=== PATIENT | female | born 1975 | race Caucasian/White ===

== ENCOUNTER 2020-03-05 17:57 | Emergency (ER) | payer SELFPAY ==
[~2020-03-05] VITALS: Ht 152.4 cm; Wt 73.5 kg
[2020-03-05 18:17] VITALS: BP_SYST 132
[2020-03-05 21:58] VITALS: BP_SYST 126
== END 2020-03-05 21:58 | disposition home or self-care (01) ==
LOC: SED 17:57
DX: U07.1 COVID-19 (principal); Z90.49 Acquired absence of other specified parts of digestive tract; Z90.710 Acquired absence of both cervix and uterus; Z88.8 Allergy status to other drugs, medicaments and biological substances
CPT/HCPCS: 99281